=== PATIENT | female | born 1945 | race Caucasian/White ===

== ENCOUNTER 2018-08-04 11:00 | Emergency (ER) | payer MEDICARE, OTHER ==
[2018-08-04] MEDS: METHYLPREDNISOLONE 125 MG INJ IV (11:34)
[2018-08-04] MEDS: DIPHENHYDRAMINE 50 MG INJ IV (11:34)
[2018-08-04] MEDS: SOD CHLORIDE 0.9% 500 ML IV (11:34)
[2018-08-04] MEDS: FAMOTIDINE 20 MG INJ INJ (11:34)
[2018-08-04 11:38] LABS: ADD MAN DIFF? NO
[2018-08-04 11:41] LABS: WHITE BLOOD COUNT 6.5 10^3/ul (4.8-10.8)
[2018-08-04 11:41] LABS: BASOPHILS % 0.5 % (0.0-2.0); HEMATOCRIT 41.7 % (37.0-47.0); HEMOGLOBIN 13.5 g/dl (12.0-16.0); LYMPHOCYTES # 2.3 10^3/ul (0.8-2.9); MEAN CORPUSCULAR HEMOGLOBIN 31.6 pg (29.0-33.0); MEAN CORPUSCULAR HGB CONC 32.4 g/dl (32.0-37.0); MEAN CORPUSCULAR VOLUME 97.7 fl (82.0-101.0); MONOCYTE # 0.4 10^3/ul (0.3-0.9); MONOCYTES % 6.7 % (0.0-11.0); NEUTROPHIL # 3.7 10^3/ul (1.6-7.5); NEUTROPHILS % 56.5 % (39.0-77.0); PLATELET COUNT 202 10^3/UL (140-415); RED BLOOD COUNT 4.27 10^6/ul (4.20-5.40); RED CELL DISTRIBUTION WIDTH 13.3 % (11.5-14.5)
[2018-08-04 12:12] LABS: ANION GAP 12 (8-16); BLOOD UREA NITROGEN 41 mg/dl (7-20); CALCIUM 9.2 mg/dl (8.4-10.2); CARBON DIOXIDE 30 mmol/L (21-31); CHLORIDE 101 mmol/L (97-110); CREATININE 1.11 mg/dl (0.44-1.00); GLUCOSE 215 mg/dl (70-220); SODIUM 138 mmol/L (135-144)
[2018-08-04 12:24] LABS: TROPONIN-I < 0.012 ng/ml (0.000-0.120)
[2018-08-04] MEDS: ONDANSETRON 4 MG INJ IV (12:48)
[2018-08-04] MEDS: morphine 4 MG/ML VIAL IV (12:48)
[2018-08-04 13:35] LABS: ADD UMIC YES; UR ASCORBIC ACID NEGATIVE (NEGATIVE); UR BACTERIA FEW /HPF (NONE SEEN); UR BILIRUBIN (Dip) NEGATIVE (NEGATIVE); UR BLOOD (Dip) NEGATIVE (NEGATIVE); UR CLARITY TURBID (CLEAR); UR COLOR YELLOW (YELLOW); UR GLUCOSE (Dip) NEGATIVE (NEGATIVE); UR KETONES (Dip) NEGATIVE (NEGATIVE); UR LEUKOCYTE ESTERASE (Dip) 3+ Leu/ul (NEGATIVE); UR NITRITE (Dip) NEGATIVE (NEGATIVE); UR NONSQUAMOUS EPITHELIAL CELL 2 /HPF (NONE SEEN); UR RBC 4 /HPF (0-5); UR SPECIFIC GRAVITY (Dip) 1.032 (1.003-1.030); UR SQUAMOUS EPITHELIAL CELL FEW /HPF (FEW); UR TOTAL PROTEIN (Dip) 1+ mg/dl (NEGATIVE); UR UROBILINOGEN (Dip) 2+ mg/dL (NEGATIVE); UR WBC > 182 /HPF (0-5)
[2018-08-04] MEDS: CEFTRIAXONE 1 GM/50 ML (PMX) 50 ML IVPB (13:59)
== END 2018-08-04 14:36 | disposition home or self-care (01) ==
LOC: E/R 11:00
DX: N30.00 Acute cystitis without hematuria (principal); R53.1 Weakness; I10 Essential (primary) hypertension; E11.9 Type 2 diabetes mellitus without complications; Z79.4 Long term (current) use of insulin; Z79.82 Long term (current) use of aspirin
CPT/HCPCS: 36415; 70498; 71045; 80048; 81001; 82565; 82962; 84484; 84520; 85025; 93005; 96374; 96375; 99285-25

== ENCOUNTER → 2018-08-04 | Outpatient (CLI) | payer MEDICARE, OTHER ==
[2018-08-04 09:32] LABS: BLOOD UREA NITROGEN 42 mg/dl (7-20)
[2018-08-04 09:32] LABS: CREATININE 1.16 mg/dl (0.44-1.00)
[2018-08-04] MEDS: IODIXANOL LOCM 100 ML BTL (10:45)
[2018-08-04] MEDS: SOD CHLORIDE 0.9% 100 ML (10:45)
== END | disposition home or self-care (01) ==
LOC: LAB 08:06
DX: I77.1 Stricture of artery (principal)
CPT/HCPCS: 70498; 82565; 84520